=== PATIENT | female | born 1960 | race African-American/Black ===

== ENCOUNTER 2016-09-28 05:32 | Emergency (ER) | payer OTHER ==
[~2016-09-28] VITALS: Ht 167.6 cm; Wt 110.0 kg
[~2016-09-28 05:32] MED LIST: ALBUAER3 INH; AMIT25TA9 PO; ASPI81TA81 PO; DULO1CAP2 PO; FERR325T PO; GABA800T PO; HYDR25TA5 PO; LACTCAP8 PO; LISI40TA PO; LORA10TA PO; MIRA3350 PO; MOME17I EACH NARE; PLAQ200T PO; PROT40TA PO; ZOLP10TA3 PO
[2016-09-28 05:33] VITALS: BP 142/84; PULSE 84; RESP 16; TEMP 97.9; O2SAT 98
[2016-09-28] MEDS ORDERED: ORPHENADRINE INJ 60 MG/2 ML AMP IM ONE (06:00)
[2016-09-28] MEDS ORDERED: KETOROLAC TROMETHAMINE 60 MG/2 ML (IM) VIAL IM ONE (06:00)
--- NOTE | 2016-09-28 06:02 | PD ---
HPI Chief Complaint: Back/ Neck Pain or Injury Time Seen by Provider: 05:48 Travel History International Travel<30 days: No Contact w/Intl Traveler<30days: No Traveled to known affect area: No History of Present Illness HPI PATIENT HAS H/O CHRONIC ARTHRITIS ON PAIN MANAGEMENT, PATIENT COMES TO ED FOR BREAKTHOUGH PAIN. PT C/O PAIN TO HANDS/KNEE JOINTS/FEET/GENERALIZED MYALGIAS PFSH Past Medical History Hx Anticoagulant Therapy: Yes (ASA) Anemia: Yes Arthritis: Yes Asthma: Yes Autoimmune Disease: No Anxiety: Yes Depression: Yes Cancer: No Cardiac Catheterization: Yes Cardiovascular Problems: Yes (HTN) Chemotherapy: No COPD: Yes Diabetes: No Diminished Hearing: No Endocrine: No Gout: Yes Hypertension: Yes Immune Disorder: No Psychiatric: No Immunizations Current: No Radiation Therapy: No Seizures: Yes Sickle Cell Disease: No Thyroid Disease: No Menopausal: Yes Past Surgical History Abdominal Surgery: No AICD: No Arteriovenous Shunt: No Cardiac Surgery: No Coronary Stent: Yes Ear Surgery: No Endocrine Surgery: No Eye Surgery: No Genitourinary Surgery: No Gynecologic Surgery: Yes (PARTIAL HYSTERECTOMY) Hysterectomy: Yes Insulin Pump: No Joint Replacement: No Neurologic Surgery: Yes (CERVICAL FUSION) Oral Surgery: No Pacemaker: No Thoracic Surgery: No Other Surgery: Yes (NECK SURGERY) Social History Alcohol Use: No Tobacco Use: No Substance Use: No Allergies-Medications (Allergen,Severity, Reaction): Coded Allergies: Amlodipine (Verified Adverse Reaction, Intermediate, 09/28/16) edema of feet Reported Meds & Prescriptions Reported Meds & Active Scripts Active Protonix (Pantoprazole Sodium) 40 Mg Tab 40 Mg PO DAILY Amitriptyline (Amitriptyline HCl) 25 Mg Tab 25 Mg PO HS Lisinopril 40 Mg Tab 40 Mg PO DAILY Nasonex Nasal [place] (Mometasone Furoate) 50 Mcg/Act Naspr 2 [place] EACH NARE DAILY PRN Proair Hfa 8.5 GM Inh (Albuterol Sulfate) 90 Mcg/Act Aer 2 Puff INH Q4-6H PRN 108 mcg/actuation Probiotic (Lactobacillus Acidophilus) 1 Cap Cap 1 Cap PO TIDAC Zolpidem (Zolpidem Tartrate) 10 Mg Tab 10 Mg PO HS PRN Duloxetine DR (Duloxetine HCl) 30 Mg Capdr 30 Mg PO DAILY Aspir-81 (Aspirin) 81 Mg Tabdr 81 Mg PO DAILY Hydrochlorothiazide 25 Mg Tab 25 Mg PO DAILY Gabapentin 800 Mg Tab 800 Mg PO TID Miralax Powder (Polyethylene Glycol 3350 Powder) 1 Pow Pow 1 Cap PO DAILY Reported Plaquenil (Hydroxychloroquine Sulfate) 200 Mg Tab 200 Mg PO BID Take with food Review of Systems Except as stated in HPI: all other systems reviewed are Neg Musculoskeletal: Positive: Pain Physical Exam Narrative GENERAL: SKIN: Warm and dry. HEAD: Atraumatic. Normocephalic. EYES: Pupils equal and round. No scleral icterus. No injection or drainage. ENT: No nasal bleeding or discharge. Mucous membranes pink and moist. NECK: Trachea midline. No JVD. CARDIOVASCULAR: Regular rate and rhythm. RESPIRATORY: No accessory muscle use. Clear to auscultation. Breath sounds equal bilaterally. GASTROINTESTINAL: Abdomen soft, non-tender, nondistended. Hepatic and splenic margins not palpable. MUSCULOSKELETAL: Extremities without clubbing, cyanosis, or edema. No obvious deformities. NEUROLOGICAL: Awake and alert. No obvious cranial nerve deficits. Motor grossly within normal limits. Five out of 5 muscle strength in the arms and legs. Normal speech. PSYCHIATRIC: Appropriate mood and affect; insight and judgment normal. Data Data Last Documented VS Vital Signs Date Time Temp Pulse Resp B/P Pulse Ox O2 Delivery O2 Flow Rate FiO2 09/28/16 05:33 97.9 84 16 142/84 98 Room Air Orders Ketorolac Inj (Toradol Inj) (09/28/16 06:00) Orphenadrine Inj (Norflex Inj) (09/28/16 06:00) Influenzae A/B Antigen (09/28/16 06:02) MDM Medical Decision Making Medical Screen Exam Complete: Yes Emergency Medical Condition: Yes Medical Record Reviewed: Yes Differential Diagnosis ARTHRITIS PAIN V BREAKTHROUGH V FLU Narrative Course PATIENT DID WELL WITH NORFLEX AND TORADOL IM, AND WAS ABLE TO AMBULATE WITH ASSISTANCE OUT OF DEPARTMENT WITH HER . ADVISED TO F/U WITH PAIN MANAGEMENT FOR FURTHER ADJUSTMENTS [facility] Point of Care Internal Pos. & Neg. Controls: Passed Diagnosis Primary Impression: BREAKTHROUGH PAIN Scripts Hydrocodone-Acetaminophen (Lortab)7.5-325 Mg Tab1 Tab PO Q6H PRN (PAIN) #20 TAB Prov:Jamel Holland MD 09/28/16 Cyclobenzaprine (Flexeril)10 Mg Tab10 Mg PO TID #21 TAB Prov:Jamel Holland MD 09/28/16 Disposition: 01 DISCHARGE HOME Condition: Stable Jamel Holland MD Sep 28, 2016 06:02
[2016-09-28] MEDS ORDERED: CYCL1TAB29 PO (06:35)
[2016-09-28] MEDS ORDERED: HYDR-3534 PO (06:35)
== END 2016-09-28 06:56 | disposition home or self-care (01) ==
LOC: NEPC 05:32
DX: R52 Pain, unspecified (principal); M13.80 Other specified arthritis, unspecified site; D64.9 Anemia, unspecified; I10 Essential (primary) hypertension; J44.9 Chronic obstructive pulmonary disease, unspecified; M10.9 Gout, unspecified; R56.9 Unspecified convulsions; F41.9 Anxiety disorder, unspecified; F32.9 Major depressive disorder, single episode, unspecified
CPT/HCPCS: 96372; 99284; J1885; J2360

== ENCOUNTER 2017-03-21 13:40 | Emergency (ER) | payer OTHER ==
[~2017-03-21 13:40] MED LIST changes: +AZIT500T2 PO; +BROMSYP PO; +CYCL10TA PO; -FERR325T PO; +HYDR-3534 PO; +LORA-567 PO; -LORA10TA PO; +PRED50 PO; -PROT40TA PO; +RANI1TAB7 PO
[2017-03-21 13:42] VITALS: BP 142/84; PULSE 88; RESP 18; TEMP 97.8; O2SAT 98
--- NOTE | 2017-03-21 17:17 | PD ---
HPI Chief Complaint: Musculoskeletal Complaint Time Seen by Provider: 15:56 Travel History International Travel<30 days: No Contact w/Intl Traveler<30days: No Traveled to known affect area: No History of Present Illness HPI 57-year-old female presents emergency department for evaluation of right foot pain 2 weeks. The pain starts in the lateral malleus region and radiates down the dorsal aspect of the foot towards the toes. The patient describes it is chronic and achy in nature. Patient denies any injuries, traumas or falls to the right foot. Patient states she's been taking Lortab to help manage the pain but the pain is persistent. Patient states she is given a history of gout and arthritis. The right foot is neurovascularly intact. There is no obvious deformities, erythema or ecchymosis noted. The patient is morbidly obese and ambulatory with a cane. Patient smokes half pack cigarettes a day. Patient denies any chest pain, shortness breath, nausea, vomiting, diarrhea or abdominal pain. PFSH Past Medical History Hx Anticoagulant Therapy: Yes (ASA) Anemia: Yes Arthritis: Yes Asthma: Yes Autoimmune Disease: No Anxiety: Yes Depression: Yes Cancer: No Cardiac Catheterization: Yes Cardiovascular Problems: Yes (HTN) Chemotherapy: No COPD: Yes Diabetes: No Diminished Hearing: No Endocrine: No Gout: Yes Hypertension: Yes Immune Disorder: No Psychiatric: No Immunizations Current: No Radiation Therapy: No Seizures: Yes Sickle Cell Disease: No Thyroid Disease: No Menopausal: Yes Past Surgical History Abdominal Surgery: No AICD: No Arteriovenous Shunt: No Cardiac Surgery: No Coronary Stent: Yes (X2) Ear Surgery: No Endocrine Surgery: No Eye Surgery: No Genitourinary Surgery: No Gynecologic Surgery: Yes (PARTIAL HYSTERECTOMY) Hysterectomy: Yes (PARTIAL) Insulin Pump: No Joint Replacement: No Neurologic Surgery: Yes (CERVICAL FUSION) Oral Surgery: No Pacemaker: No Thoracic Surgery: No Other Surgery: Yes (NECK SURGERY) Social History Alcohol Use: No Tobacco Use: Yes Substance Use: No Allergies-Medications (Allergen,Severity, Reaction): Coded Allergies: amlodipine (Unverified Adverse Reaction, Intermediate, 03/21/17) edema of feet Reported Meds & Prescriptions Reported Meds & Active Scripts Active Loratadine Odt (Loratadine) 10 Mg Tab 10 Mg PO DAILY Zolpidem (Zolpidem Tartrate) 10 Mg Tab 10 Mg PO HS PRN Ranitidine Maximum Strength (Ranitidine HCl) 150 Mg Tab 150 Mg PO BID Flexeril (Cyclobenzaprine HCl) 10 Mg Tab 10 Mg PO TID Amitriptyline (Amitriptyline HCl) 25 Mg Tab 25 Mg PO HS Lisinopril 40 Mg Tab 40 Mg PO DAILY Nasonex Nasal [place] (Mometasone Furoate) 50 Mcg/Act Naspr 2 [place] EACH NARE DAILY PRN Proair Hfa 8.5 GM Inh (Albuterol Sulfate) 90 Mcg/Act Aer 2 Puff INH Q4-6H PRN 108 mcg/actuation Duloxetine DR (Duloxetine HCl) 30 Mg Capdr 30 Mg PO DAILY Aspir-81 (Aspirin) 81 Mg Tabdr 81 Mg PO DAILY Hydrochlorothiazide 25 Mg Tab 25 Mg PO DAILY Gabapentin 800 Mg Tab 800 Mg PO TID Miralax Powder (Polyethylene Glycol 3350 Powder) 1 Pow Pow 1 Cap PO DAILY Reported Plaquenil (Hydroxychloroquine Sulfate) 200 Mg Tab 200 Mg PO BID Take with food Review of Systems Except as stated in HPI: all other systems reviewed are Neg Physical Exam Narrative GENERAL: Well-nourished, well-developed morbidly obese 57-year-old female patient in no acute distress. Nontoxic appearing. SKIN: Focused skin assessment warm/dry. HEAD: Normocephalic. Atraumatic. EYES: No scleral icterus. No injection or drainage. NECK: Supple, trachea midline. No JVD or lymphadenopathy. CARDIOVASCULAR: Regular rate and rhythm without murmurs, gallops, or rubs. Pulses +2 bilaterally. RESPIRATORY: Breath sounds equal bilaterally. No accessory muscle use. GASTROINTESTINAL: Abdomen soft, non-tender, nondistended. MUSCULOSKELETAL: Full range of motion with dorsi and pedal flexion noted in the left foot. Mild nonpitting +1 edema noted surrounding the left ankle. No obvious deformities, erythema, ecchymosis, or cyanosis. Data Data Last Documented VS Vital Signs Date Time Temp Pulse Resp B/P (MAP) Pulse Ox O2 Delivery O2 Flow Rate FiO2 03/21/17 13:42 97.8 88 18 142/84 (103) 98 Orders Orders Foot, Complete ([id number]) (03/21/17 16:23) Ice/Cold Pack (03/21/17 16:23) MDM Medical Decision Making Medical Screen Exam Complete: Yes Emergency Medical Condition: Yes Differential Diagnosis Differential diagnoses include but not limited to gout exacerbation, rheumatoid arthritis exacerbation, contusion, foot sprain, foot fracture Narrative Course X-ray of the left foot ordered and pending. Ice applied to the left foot. Ibuprofen ordered for pain management. X-ray of the left foot shows minimal soft tissue swelling along the dorsum of the foot with no fracture. Small calcaneal spur along the plantar aponeurosis. Germán wrap applied to the left foot. Patient discharged home with rice therapy instructions and instructions to follow up with her primary care or return to the emergency Department with any worsening condition. Last Impressions Foot X-Ray 03/21/17 1623 Signed Impressions: Service Date/Time: , March 21, 2017 16:51 - CONCLUSION: 1. Minimal soft tissue swelling along the dorsum of the foot with no fracture.. 2. Small calcaneal spur at the plantar aponeurosis. Stable mir-Talar and mir- navicular ossifications Talha Medina MD Diagnosis Primary Impression: Foot pain, left Referrals: Primary Care Physician Patient Instructions: General Instructions Additional Instructions: Please return to emergency department if your symptoms return or worsen. Follow up with your primary care provider. Rice therapy to left foot, rest, ice, Germán wrap with activity and elevate with resting. May take ibuprofen as needed for pain and swelling. Disposition: 01 DISCHARGE HOME Condition: Stable ShabnamAlyssia desai Any MAJOR Mar 21, 2017 17:17
--- NOTE | 2017-03-21 17:32 | RADRPT ---
EXAM DATE/TIME: 03/21/2017 16:51 [facility] COMPARISON: FOOT RIGHT COMPLETE ([id number]), December 05, 2015, 10:01. INDICATIONS : Right radiating pain on the top of right foot. No known injury. MEDICAL HISTORY : None. SURGICAL HISTORY : None. ENCOUNTER: Initial ACUITY: 2 weeks PAIN SCORE: 8/10 LOCATION: Right foot FINDINGS: There is along the dorsum of the foot provided by the technologist in the area of abnormality. There may be some minimal soft tissue swelling. Well-corticated stable ossifications are seen adjacent to t he talar neck medially and the navicular-cuneiform junction on the lateral probably representing acce ssory ossifications. Small calcaneal spur at the plantar aponeurosis. No fracture. CONCLUSION: 1. Minimal soft tissue swelling along the dorsum of the foot with no fracture.. 2. Small calcaneal spur at the plantar aponeurosis. Stable mir-Talar and mir-navicular ossification s Talha Medina MD on March 21, 2017 at 17:26 Board Certified Radiologist. This report was verified electronically.
[2017-03-21] MEDS ORDERED: IBUPROFEN 600 MG TAB PO ONE (18:00)
[2017-03-22] MEDS ORDERED: ZOLP10TA3 PO (13:50)
== END 2017-03-21 18:06 | disposition home or self-care (01) ==
LOC: NEPK 13:40
DX: M79.672 Pain in left foot (principal); M79.671 Pain in right foot; E66.01 Morbid (severe) obesity due to excess calories; F17.210 Nicotine dependence, cigarettes, uncomplicated; I10 Essential (primary) hypertension; J44.9 Chronic obstructive pulmonary disease, unspecified; M10.9 Gout, unspecified
CPT/HCPCS: 73630; 99283